=== PATIENT | female | born 1955 | race Caucasian/White ===

== ENCOUNTER 2019-12-12 09:17 | Emergency (ER) | payer OTHER, MEDICAID ==
[~2019-12-12] VITALS: Ht 154.9 cm; Wt 43.1 kg
[2019-12-12 09:29] VITALS: Ht 154.9 cm; Wt 43.1 kg
[2019-12-12 11:46] VITALS: BP 127/71
== END 2019-12-12 11:46 | disposition home or self-care (01) ==
LOC: ED 09:17
DX: S20.212A Contusion of left front wall of thorax, initial encounter (principal); R10.9 Unspecified abdominal pain; J44.9 Chronic obstructive pulmonary disease, unspecified; Z98.890 Other specified postprocedural states; W18.39XA Other fall on same level, initial encounter; Y93.89 Activity, other specified; Y92.89 Other specified places as the place of occurrence of the external cause; Y99.8 Other external cause status
CPT/HCPCS: J1885; J2270